=== PATIENT | female | born 1970 | race Hispanic/Latino ===

== ENCOUNTER 2018-12-24 20:34 | Emergency (ER) | payer OTHER ==
--- NOTE | 2018-12-24 21:11 | Emergency Department Report ---
ED Chest Pain HPI - General Chief Complaint: Dizziness Stated Complaint: CHEST PAIN Time Seen by Provider: 12/24/18 20:48 Source: patient, EMS Mode of arrival: Ambulatory Limitations: No Limitations - History of Present Illness Initial Comments: 48-year-old female presents to ED with chest pain and palpitations. Patient states she is feeling fluttering in her chest with associated squeezing chest pain. States symptoms have been intermittent over the last couple of hours, reports associated mild shortness of breath with the episodes. Patient states this has happened before in July of this year. States at that time she was admitted to the hospital and found to be having runs of V tach. Patient states after discharge she was supposed to follow with cardiology for Holter monitoring, but did not. Patient is an EMT. At that time patient states she believes her symptoms were triggered by multiple days of work and no sleep. Patient states she is currently in the same situation, working lots of shifts and has not been getting much rest. MD Complaint: chest pain -: hour(s) (2) Onset: during rest Pain Location: substernal Pain Radiation: none Severity: moderate Quality: squeezing Consistency: intermittent Improves With: nothing Worsens With: nothing re: dyspnea. denies: nausea, vomting, diaphoresis Other Symptoms: palpitations. denies: leg swelling Treatments Prior to Arrival: none - Related Data Allergies Allergy/AdvReac Type Severity Reaction Status Date / Time No Known Allergies Allergy Unverified 12/25/18 00:12 Heart Score - HEART Score History: Slightly suspicious EKG: Normal Age: < 45 Risk factors: 1-2 risk factors Troponin: < normal limit HEART Score: 1 ED Review of Systems ROS: Stated complaint: CHEST PAIN Other details as noted in HPI ED Past Medical Hx - Past Medical History Previous Medical History?: No - Surgical History Past Surgical History?: No - Social History Smoking Status: Never Smoker Substance Use Type: Alcohol ED Physical Exam - General Limitations: No Limitations ED Course Vital Signs 12/24/18 12/24/18 12/24/18 20:36 20:45 20:55 Temperature 98.9 F Pulse Rate 70 74 Respiratory 17 16 12 Rate Blood Pressure 144/96 144/96 O2 Sat by Pulse 98 98 Oximetry 12/24/18 12/24/18 12/24/18 21:00 21:31 21:36 Temperature Pulse Rate 71 64 Respiratory 10 L 14 18 Rate Blood Pressure 147/105 138/86 O2 Sat by Pulse 98 98 Oximetry - Consultations Consultation #1: 12/24/18 23:57 Spoke lauren/ [facility] physician, Dr Dey. States pt will be transferred to [facility]. Accepting physician there is Dr Arrieta. ED Medical Decision Making - Lab Data Result diagrams: 12/24/18 Unknown 12/24/18 Unknown - EKG Data -: EKG Interpreted by [facility] EKG shows normal: sinus rhythm, axis, intervals, QRS complexes, ST-T waves Rate: normal - EKG Data Interpretation: no acute changes - Radiology Data Radiology results: report reviewed, image reviewed - Medical Decision Making 48-year-old female presents to ED with chest pain and palpitations. EKG is unremarkable, troponin is normal. Electrolytes normal. Vitals are normal. Patient reports the last time this occurred, 5 months ago, she was having runs of V. tach. Patient clarified that she was definitely told that she was having runs of V. tach, not SVT. She admits that she did not follow up with cardiology as she was told. Spoke lauren/ [facility] physician on-call. Will transfer pt to [facility] for further evaluation. - Differential Diagnosis ACS, arrythmia, electrolyte abnormality Critical care attestation.: If time is entered above; I have spent that time in minutes in the direct care of this critically ill patient, excluding procedure time. ED Disposition Clinical Impression: Acute chest pain, Heart palpitations Disposition: [id number]/TX-[id number] ANOTHER TYPE HLTHCARE Is pt being admited?: No Condition: Stable Instructions: Chest Pain (ED) Referrals: [facility] [Other] - 3-5 Days Time of Disposition: 22:48
[2018-12-24 21:19] LABS: Basophils # (Auto) 0.1 K/mm3 (0.0-0.1); Basophils % (Auto) 0.8 % (0.0-1.8); Eosinophils # (Auto) 0.1 K/mm3 (0.0-0.4); Eosinophils % (Auto) 1.1 % (0.0-4.3); Hematocrit 43.3 % (30.3-42.9); Hemoglobin 14.3 gm/dl (10.1-14.3); Lymphocytes # (Auto) 2.7 K/mm3 (1.2-5.4); Lymphocytes % (Auto) 37.8 % (13.4-35.0); Mean Corpuscular HGB Conc 33 % (30-34); Mean Corpuscular Volume 94 fl (79-97); Monocytes # (Auto) 0.6 K/mm3 (0.0-0.8); Monocytes % (Auto) 7.7 % (0.0-7.3); Platelet Count 287 K/mm3 (140-440); Red Blood Count 4.63 M/mm3 (3.65-5.03); Red Cell Distribution Width 13.3 % (13.2-15.2)
[2018-12-24 21:29] LABS: INR 0.9 (0.87-1.13); Partial Thromboplastin Time 26.9 Sec. (24.2-36.6)
--- NOTE | 2018-12-24 21:32 | XRay Report ---
CHEST 1 VIEW 12/24/2018 9:04 PM INDICATION / CLINICAL INFORMATION: chest pain, palpitations. COMPARISON: None available. FINDINGS: SUPPORT DEVICES: None. HEART / MEDIASTINUM: No significant abnormality. LUNGS / PLEURA: No significant pulmonary or pleural abnormality. No pneumothorax. ADDITIONAL FINDINGS: No significant additional findings. IMPRESSION: 1. No acute abnormality of the chest. Signer Name: Matthew Womack MD Signed: 12/24/2018 9:28 PM Workstation Name: [id number]
[2018-12-24 21:39] LABS: BUN/Creatinine Ratio 23; Blood Urea Nitrogen 21 mg/dL (7-17); Calcium 9.4 mg/dL (8.4-10.2); Hemolysis Index 28
[2018-12-24] MEDS ORDERED: ASPIRIN PO ONE (22:46)
[2018-12-25 02:12] VITALS: BP 129/86
== END 2018-12-25 02:00 | disposition other institution (70) ==
LOC: ED 20:34
DX: R07.89 Other chest pain (principal); R00.2 Palpitations; R06.02 Shortness of breath
CPT/HCPCS: 36415; 71045; 80048; 83735; 84484; 85025; 85610; 85730; 93005; 93010